=== PATIENT | female | born 1990 | race Caucasian/White ===

== ENCOUNTER 2020-04-22 04:25 | Emergency (ER) | payer OTHER, BC, SELFPAY ==
[2020-04-22 04:26] VITALS: BP 147/90; PULSE 112; RESP 18; TEMP 36.9; O2SAT 97; BMI 31.8
--- NOTE | 2020-04-22 04:27 | RAD_ITS ---
STUDY: X-RAY - LEFT HAND REASON FOR EXAM: Female, 29 years old. INJURED AT WORK -- A PIECE OF EQUIPMENT HIT LT THUMB -- C/O PAIN PROXIMAL PHALANX TECHNIQUE: 3 view(s) of the hand. COMPARISON: None. FINDINGS: Normal radiocarpal articulation. Normal distal radioulnar joint. Normal visualized carpal bones. Normal carpal articulations Normal carpometacarpal articulation of the thumb. Normal second through fifth carpometacarpal joints. Normal metacarpi. Normal metacarpophalangeal joint of the thumb. Normal interphalangeal joint of the thumb. Normal proximal and distal phalanges of the thumb. Normal metacarpophalangeal joints of the second through fifth fingers. Normal proximal and distal interphalangeal joints of the second through fifth fingers. Normal phalanges of the second through fifth fingers. The soft tissue structures are unremarkable. RAD/Hand Min 3 Views IMPRESSION: Normal x-ray examination of the hand. Electronically Signed: Stoney Piedra, at 4:52 EST Tel , Service support ,
--- NOTE | 2020-04-22 04:27 | ED.VIS.GEN ---
History of Present Illness Chief Complaint: Upper Extremity Injury Informant: Patient Onset: Today Context: Sudden Onset Timing: Continuous Current Severity: Moderate Maximum Severity: Moderate Narrative: Patient is a 29-year-old female is otherwise healthy presents to the emergency department left thumb injury. The patient was at work. She had her left thumb pinched in a press. She had immediate pain. She states is difficult to move secondary to pain. She is right-hand dominant. Tetanus is up-to-date. She has otherwise been in her normal state of health. Prior similar symptoms: No Recent Illness/Hospitalization: No Past Medical History - Allergies and Home Meds Allergies/Adverse Reactions: Allergies ranitidine [From Zantac] Allergy (Mild, Verified 04/22/20 04:30) Hives Primary Care Physician: PENNY FRANCIS [[facility] OF PH[facility]] - Prior records reviewed: Yes Past Medical History: None Surgical History: noncontributory Smoking Status: Never smoker Review of Systems General: Denies: Chills, Fever, Sweats Eyes: Denies: Visual changes - bilaterally, Diplopia ENT: Denies: Rhinorrhea, Sore throat Cardiovascular: Denies: Chest pain, Palpitations Respiratory: Denies: Dyspnea, Cough, Dyspnea on exertion Gastrointestinal: Denies: Abdominal pain, Nausea, Vomiting, Diarrhea, Melena, Hematochezia Genitourinary: Denies: Dysuria, Hematuria, Frequency Musculoskeletal: Denies: Back pain, Extremity Pain Skin: Denies: Rash, Wounds Neurological: Denies: Headache, Weakness, Numbness Physical Exam Inital Vital Signs reviewed: Yes General: Well nourished, Well developed, No Acute Distress Head: Normocephalic, Atraumatic Eyes: Perrl, EOMI ENT: Moist mucous membranes, No rhinorrhea Neck: Supple, Nontender Cardiovascular: Regular rate, Regular rhythm, No murmurs Respiratory: No distress, CTA bilaterally, Chest nontender Abdomen: Soft, Nontender, Nondistended, Normal bowel sounds Back: Nontender, Normal Inspection Extremities: No edema, Tenderness - Tenderness over the IP joint of the left thumb. Superficial abrasion. Two-point discrimination preserved. Cap refill less than 2 seconds. Skin: Normal color, No rash Neurological: Alert, Oriented x3, Cranial nerves II-XII grossly intact, Normal Strength, Normal Sensation Psychological: Normal affect, Normal Mood Diagnostic/Tx/Re-eval Clinical Impression(s) from Imaging Studies Hand X-Ray 04/22/20 04:27 IMPRESSION: Normal x-ray examination of the hand. Electronically Signed: Stoney Piedra, at 4:52 EST Tel , Service support , - Medical Decision Making Patient is neurovascular intact. Tetanus is up-to-date. Plain films were obtained of the thumb. There is no evidence of acute fracture. Her abrasion was dressed with bandage and bacitracin. She will be placed in a removable thumb spica and given follow-up with med pro. Impression 1. Left thumb contusion ED Disposition - Plan for ED Patient: Instructions: ED Crush Injury Finger No Fx Referrals: PENNY FRANCIS [GROUP OF PHYSICIANS] -
[2020-04-22 04:58] VITALS: PULSE 88; RESP 16; O2SAT 98
== END 2020-04-22 05:10 | disposition home or self-care (01) ==
LOC: ED 04:55
PROVIDERS: Emergency Provider Emergency Medicine; PCP Internal Medicine
DX: S60.012A Contusion of left thumb without damage to nail, initial encounter (principal); W31.89XA Contact with other specified machinery, initial encounter; Y93.9 Activity, unspecified; Y92.9 Unspecified place or not applicable; Y99.0 Civilian activity done for income or pay
CPT/HCPCS: 73130; 99283

== ENCOUNTER 2020-05-03 19:07 | Emergency (ER) | payer BC, OTHER, SELFPAY ==
[2020-05-03 19:08] VITALS: BP 145/95; PULSE 102; RESP 16; TEMP 36.4; O2SAT 100; BMI 29.2
[2020-05-03 20:00] VITALS: PULSE 82; RESP 16; O2SAT 97
[2020-05-03] MEDS: 0.9% Normal Saline 1,000 ML 1000 ML IV (20:01)
[2020-05-03] MEDS: Ondansetron 4 MG/2 ML Vial IV (20:01)
[2020-05-03 20:05] LABS: Absolute Lymphocyte Count 2.25 X10^3/uL (0.83-4.51); Absolute Neutrophil Count 4.3 X10^3/uL (2.0-7.7); Basophil# 0.03 X10^3/uL; Basophil% 0.4 % (0-1); Eosinophil# 0.12 X10^3/uL; Eosinophils% 1.6 % (0-5); Hematocrit 47.5 % (37-47); Hemoglobin 14.8 g/dL (12.0-15.0); Lymphocyte # 2.25 X10^3/ul (4.0); Lymphocyte % 30.9 % (19-41); Mean Corp Hgb Conc 31.2 g/dL (32-36); Mean Corpuscular Hgb 27.7 pg (27.0-32.0); Mean Corpuscular Volume 88.8 fL (81-99); Mean Platelet Vol. 8.6 fl (6.2-12.0); Monocyte# 0.62 X10^3/uL; Monocyte% 8.5 % (0-10); NRBC Flagged by Analyzer 0 % (0-5); Neutrophil # 4.25 X10^3/uL (2.7-7.7); Neutrophil % 58.5 % (47-70); Platelet Count 306 K/mm3 (150-450); RBC Distribution Width CV 12.7 % (11.6-14.6); RBC Distribution Width SD 41.8 fl (35.1-43.9); Red Blood Count 5.35 M/mm3 (4.2-5.4); White Blood Count 7.3 K/mm3 (4.4-11.0)
[2020-05-03 20:10] LABS: Internal QC Validated? YES +Cl - CLEAR BKGD; Pregnancy, Serum, hCG Quali. NEGATIVE Negative
[2020-05-03 20:16] LABS: ALB/GLOB Ratio 0.9 RATIO (0.9-2.4); AST(SGOT) 13 U/L (15-37); Alanine Aminotransfer ALT/SGPT 26 U/L (13-56); Albumin, Serum 3.7 g/dL (3.2-5.0); Alkaline Phosphatase 79 U/L (45-117); Anion Gap 5 (5-15); BUN 9 mg/dL (7-18); BUN/Creat Ratio 12.2 RATIO (10-20); Calcium,Total 9.3 mg/dL (8.5-10.1); Chloride 106 mmol/L (98-107); Creatinine, Serum 0.74 mg/dL (0.55-1.02); EST Glomerular Filtration Rate 97 mL/min (>60); Est Glom Filt Rate - Afr Amer 118 mL/min (>60); Estimated Creatinine Clearance 91.12 ml/min; Globulin 4.3 g/dL (2.2-4.2); Glucose 99 mg/dL (74-106); Lipase 91 U/L (73-393); Sodium Level 140 mmol/L (136-145)
--- NOTE | 2020-05-03 20:30 | ED.VISSUMM ---
- ER Visit Summary Date of Service: 05/03/20 Chief Complaint: Nausea, vomiting, abdominal pain History of Present Illness: The patient is a [address] Williamson. She reports that her electric transfer operator at [facility] diagnosed her with adrenal insufficiency 3 days ago and placed her on hydrocortisone. She reports that since beginning this she does not feel well. States that she has sharp upper abdominal pain that is intermittent and lasts approximately 3 minutes at a time. She denies any pain currently. She reports is 10 of 10 at worst. Is worsened by nothing. Is relieved by position. She reports has been nauseated. Last vomited 2 days ago. No blood in her emesis. However, she reports she still nauseated anytime she eats. Her last bowel was today. Normal hematochezia. No dysuria or frequency. Physical Examination: Vitals: Stable. Afebrile. General: Well-nourished and well-developed. Head: Normocephalic atraumatic. Neck: Supple, no lymphadenopathy. No JVD. Nontender. Cardiovascular: Regular rate and rhythm. No murmurs. Respiratory: No respiratory distress. Clear to auscultation bilaterally. Abdominal: Soft, nontender, nondistended, normal bowel sounds. No guarding, rebound, or peritoneal signs. Back: Nontender. Extremities: Nontender, no edema. Skin: Normal color, no rash. Neurologic: Alert and oriented ?3. Cranial nerves II through XII are intact. Normal strength and sensation. Psych: Normal affect. Test Results: CBC shows hematocrit of 47.5. Chem-7 is normal. LFTs show globulin 4.3. AST is 13. test is negative. Emergency Department Course and Treatment: Patient was treated with a dose of Zofran IV. She was given a liter of normal saline. She is resting comfortably. Treatment Plan: Had a prolonged scratch the patient that these may be side effects of the hydrocortisone. However, with adrenal insufficiency I do not think it is in her best interest to stop this without speaking to her electric transfer operator. Her symptoms will be managed with Zofran and Prilosec. She is instructed to follow-up with her electric transfer operator as possible. Follow-up Dr. Williamson in 3 to 5 days if not improving. Return to the emergency department for any worsening symptoms. Disposition: To home in improved and stable condition. Impression: 1. Vomiting. 2. Abdominal pain, uncertain cause. This note was generated with TuneUp dictation software. It may contain incorrect words, spelling, and punctuation that were not noted in review of the chart prior to signing ED Disposition - Plan for ED Patient: Disposition: Home or Assisted Living Instructions: ED Abdominal Pain Unkn Cause Fem Prescriptions: Omeprazole [Prilosec] 20 mg PO DAILY #30 cap Prescription Printed Ondansetron [Zofran Odt] 4 mg PO Q8H PRN PRN #10 tab PRN Reason: Nausea Prescription Printed Referrals: Araceli Nguyen MD [Primary Care Provider] - 3-5 Days if not improving
[2020-05-03 20:42] VITALS: BP 131/75; PULSE 89; RESP 18; O2SAT 99
== END 2020-05-03 20:43 | disposition home or self-care (01) ==
LOC: ED 19:43
PROVIDERS: Emergency Provider Emergency Medicine; PCP Internal Medicine
DX: R11.2 Nausea with vomiting, unspecified (principal); R10.9 Unspecified abdominal pain; E27.40 Unspecified adrenocortical insufficiency
CPT/HCPCS: 80053; 83690; 84703; 85025; 96361; 96374; 99284; J7030; A4216; J2405

== ENCOUNTER → 2020-05-07 11:55 | Outpatient (CLI) | payer BC, OTHER, SELFPAY ==
--- NOTE | 2020-05-07 11:58 | CT_ITS ---
STUDY: CT ABDOMEN AND PELVIS WITH AND WITHOUT CONTRAST REASON FOR EXAM: Female, 29 years old. Adrenal INSUFFICIENCY. RADIATION DOSAGE (If Supplied By Facility): CTDIvol = ( 23.90 ) mGy, DLP = ( 2356.78 ) mGycm TECHNIQUE: Transaxial images were obtained from the dome of the diaphragm to the symphysis pubis without oral contrast. IV 100ML ISOVUE 300 was administered. Sagittal and coronal images were reconstructed. Individualized dose optimization techniques were used for this CT. COMPARISON: None. FINDINGS: The visualized lung bases are unremarkable. The visualized portions of the heart are within normal limits. There is decreased attenuation of the liver consistent with steatosis. Normal gallbladder and extrahepatic biliary system. Normal spleen. Normal pancreas. Normal bilateral adrenal glands. Focal calcification in the papilla of the midpole of the right kidney suggestive of possible medullary sponge kidney. 1 cm cyst in the mid medial portion of the right kidney as well as in the upper pole of the right kidney. Normal left kidney. Normal visualized stomach. Normal small intestine. Normal colon. The appendix is visualized and appears normal. Normal abdominal aorta. Normal inferior vena cava. There is borderline retroperitoneal lymphadenopathy with enlarged nodes no greater than 10mm in the short axis diameter. Normal urinary bladder. Normal abdominal wall. Normal osseous structures. CT/CT Abd/Pelvis W/WO Contrast IMPRESSION: Fatty infiltration of the liver. The adrenal glands are unremarkable. 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 There are 2 cysts in the right kidney Electronically Signed: Jagdish Castro, at 13:32 EST , Service support ,
== END ==
PROVIDERS: PCP Internal Medicine; Referring Provider Internal Medicine; Visit Provider Internal Medicine
DX: E27.49 Other adrenocortical insufficiency (principal); R10.9 Unspecified abdominal pain
CPT/HCPCS: 74178; Q9967; A4216

== ENCOUNTER → 2020-06-28 11:59 | Outpatient (CLI) | payer OTHER, SELFPAY ==
[2020-06-28 11:07] VITALS: BMI 29.5
[2020-06-28 15:52] LABS: Anion Gap 5 (5-15); BUN 8 mg/dL (7-18); BUN/Creat Ratio 11.7 RATIO (10-20); Calcium,Total 9.4 mg/dL (8.5-10.1); Chloride 103 mmol/L (98-107); Creatinine, Serum 0.68 mg/dL (0.55-1.02); EST Glomerular Filtration Rate 107 mL/min (>60); Est Glom Filt Rate - Afr Amer 129 mL/min (>60); Glucose 97 mg/dL (74-106); Sodium Level 137 mmol/L (136-145)
== END ==
PROVIDERS: PCP Internal Medicine; Referring Provider Internal Medicine; Visit Provider Internal Medicine
DX: E27.40 Unspecified adrenocortical insufficiency (principal)
CPT/HCPCS: 36415; 80048

== ENCOUNTER 2021-08-15 15:05 | Outpatient (CLI) | payer BC, OTHER, SELFPAY ==
[2021-08-15 16:39] LABS: Absolute Lymphocyte Count 2.36 X10^3/uL (0.83-4.51); Absolute Neutrophil Count 5.1 X10^3/uL (2.0-7.7); Basophil# 0.04 X10^3/uL; Basophil% 0.5 % (0-1); Eosinophils% 1.2 % (0-5); Hematocrit 42.8 % (37-47); Hemoglobin 13.9 g/dL (12.0-15.0); Lymphocyte # 2.36 X10^3/ul (0.83-4.51); Lymphocyte % 28.8 % (19-41); Mean Corp Hgb Conc 32.5 g/dL (32-36); Mean Corpuscular Hgb 27.6 pg (27.0-32.0); Mean Corpuscular Volume 85.1 fL (81-99); Mean Platelet Vol. 8.9 fl (6.2-12.0); Monocyte# 0.55 X10^3/uL; Monocyte% 6.7 % (0-10); NRBC Flagged by Analyzer 0 % (0-5); Neutrophil # 5.12 X10^3/uL (2.7-7.7); Neutrophil % 62.6 % (47-70); Platelet Count 327 K/mm3 (150-450); RBC Distribution Width CV 12.8 % (11.6-14.6); RBC Distribution Width SD 39.7 fl (35.1-43.9); Red Blood Count 5.03 M/mm3 (4.2-5.4); White Blood Count 8.2 K/mm3 (4.4-11.0)
[2021-08-15 16:52] LABS: Vitamin D,25 Hydroxy 19.2 ng/mL
[2021-08-15 16:54] LABS: Hemoglobin A1c 5.2 % (3.8-5.6)
[2021-08-15 17:27] LABS: ALB/GLOB Ratio 0.8 RATIO (0.9-2.4); AST(SGOT) 16 U/L (15-37); Alanine Aminotransfer ALT/SGPT 27 U/L (13-56); Albumin, Serum 3.5 g/dL (3.2-5.0); Alkaline Phosphatase 78 U/L (45-117); Anion Gap 7 (5-15); BUN 6 mg/dL (7-18); BUN/Creat Ratio 9.2 RATIO (10-20); Calcium,Total 8.8 mg/dL (8.5-10.1); Chloride 106 mmol/L (98-107); Creatinine, Serum 0.65 mg/dL (0.55-1.02); EST Glomerular Filtration Rate 111 mL/min (>60); Est Glom Filt Rate - Afr Amer 134 mL/min (>60); Globulin 4.4 g/dL (2.2-4.2); Glucose 102 mg/dL (74-106); Potassium 3.9 mmol/L (3.5-5.1); Protein, Total 7.9 g/dL (6.4-8.2); Sodium Level 139 mmol/L (136-145); Thyroid Stim Hormone (TSH) 1.44 uIU/mL (0.358-3.74)
== END 2021-08-15 23:59 | disposition home or self-care (01) ==
LOC: BIMLAB 15:06
PROVIDERS: PCP Internal Medicine; Visit Provider Internal Medicine
DX: R19.7 Diarrhea, unspecified (principal)
CPT/HCPCS: 36415; 80053; 82306; 83036; 84443; 85025

== ENCOUNTER 2021-08-17 13:25 | Outpatient (CLI) | payer BC, OTHER, SELFPAY | END 2021-08-17 23:59 | disposition home or self-care (01) | LOC: LABSPEC 13:26 | PROVIDERS: PCP Internal Medicine; Referring Provider Internal Medicine; Visit Provider Internal Medicine | DX: R19.7 Diarrhea, unspecified (principal) | CPT/HCPCS: 87506 ==

== ENCOUNTER 2021-08-22 07:49 | Outpatient (CLI) | payer BC, OTHER, SELFPAY ==
--- NOTE | 2021-08-22 07:51 | US_ITS ---
STUDY: ABDOMINAL ULTRASOUND - RIGHT UPPER QUADRANT REASON FOR VISIT: Female, 30 years old diarrhea, ruq tenderness TECHNIQUE: Ultrasound evaluation of the right upper quadrant was performed with real-time and static vargas-scale imaging. TECHNICAL QUALITY: Adequate. COMPARISON: None. FINDINGS: Liver: The liver measures 17.2 cm. There is increased echogenicity consistent with fatty infiltration. The bile ducts are within normal limits. There is hepatic color flow. The direction of portal flow is hepatopetal. There is no demonstrated mass lesion. Gallbladder: Normal distended gallbladder. The gallbladder wall measures 2.0 mm. There is a negative sonographic Quach''s sign. There is no pericholecystic fluid. There are no gallstones. Common Bile Duct (C.B.D.): The common bile duct measures 2 mm. Pancreas: Normal size of the head, body of the pancreas. The tail portion is obscured due to overlying bowel gas. There is normal echogenicity of the pancreas. There is no demonstrated pancreatic mass or cyst. Right Kidney: Normal size of the right kidney. The right kidney measures 11.2 cm x 5.9 cm x 5.3 cm. Normal renal cortex. The right cortex measures 1.3 cm. There is no demonstrated renal mass or cyst. There is no right hydronephrosis. US/Abdomen Limited IMPRESSION: Fatty infiltration of the liver. Borderline hepatomegaly. Electronically Signed: Jagdsih Castro MD at 8:28 EST ,
== END 2021-08-22 23:59 | disposition home or self-care (01) ==
LOC: US 07:51
PROVIDERS: PCP Internal Medicine; Referring Provider Internal Medicine; Visit Provider Internal Medicine
DX: R19.7 Diarrhea, unspecified (principal); R10.811 Right upper quadrant abdominal tenderness
CPT/HCPCS: 76705

== ENCOUNTER 2022-01-09 11:35 | Emergency (ER) | payer OTHER, BC, SELFPAY ==
[2022-01-09 11:35] VITALS: BP 153/105; PULSE 113; RESP 16; TEMP 36.4; O2SAT 98; BMI 29.2
--- NOTE | 2022-01-09 12:05 | EDS_ITS ---
HPI History of Present Illness Chief Complaint: Head Injury Informant: patient Narrative Narrative: Patient is a 31-year-old female with history of PCOS, adrenal insufficiency and pituitary adenoma presenting after head injury at work. 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 No loss of consciousness reported. States she does have headache, dizziness, feels nauseous but no vomiting. Does not have any history of concussions. This injury happened around 6:45 AM. She did take ibuprofen prior to arrival. Work was concerned recommend she get evaluated further. No other complaints at this time. Patient is on any blood thinners. Denies any ringing or ears or vision changes. [facility] Medical History Pituitary abnormality Rosacea Home Medications ibuprofen 800 mg tablet 800 mg PO TID PRN PRN Pain #60 tabs 10/15/14 [Rx Last Taken Unknown] levonorgestrel 20 mcg/24 hours (7 yrs) 52 mg intrauterine device (Mirena) 1 device intrauterine ONCE 11/23/20 [History Last Taken Unknown] metformin 500 mg tablet,extended release 24 hr 500 mg PO BID 11/23/20 [History Last Taken Unknown] drospiren-e.estrad-l.mefol 3 mg-0.02 mg-0.451 mg(24)/0.451 mg(4)tablet (Beyaz (28)) 1 tab PO DAILY 08/15/21 [History Last Taken Unknown] lactobacillus combination no.9 4 billion cell capsule (Adult 50 Plus Probiotic) PO 09/01/21 [History Last Taken Unknown] ondansetron 4 mg disintegrating tablet 4 mg PO Q6H PRN nausea and vomiting #10 tabs 01/09/22 [Rx Last Taken Unknown] Allergy/AdvReac Type Severity Reaction Status Date / Time ranitidine [From Zantac] Allergy Mild Hives Verified 09/01/21 09:54 Family History Grandmother Diabetes Heart disease CVA (cerebral vascular accident) Mother Diabetes Thyroid disorder Grandfather Heart disease Father Hypertension Social History Smoking Status: Unknown if ever smoked Tobacco: How many years used: 5 alcohol intake: never substance use type: does not use ROS ROS ED Constitutional Constitutional ED: Denies chills or fever(s) Eyes Eyes: Denies blurry vision or change in vision ENT ENT ED: Denies rhinorrhea or sore throat Cardiovascular Cardiovascular: Denies chest pain Respiratory/Chest Respiratory/Chest: Denies cough Gastrointestinal Gastrointestinal: Reports nausea; Denies abdominal pain or vomiting Genitourinary Genitourinary ED: Denies dysuria Musculoskeletal Musculoskeletal: Denies arthralgias, back pain or neck pain Integumentary Reports Abrasions Neurologic Neurologic: Reports headache(s); Denies paresthesias or weakness Psychiatric Psychiatric: Denies anxiety Hematologic/Lymphatic Hematologic/Lymphatic: Denies easy bleeding or easy bruising EXAM Physical Exam Const Vital Signs: 01/09/22 11:35 Temperature 97.6 F L Temperature Source Temporal Pulse Rate 113 H Respiratory Rate 16 Blood Pressure 153/105 H Blood Pressure Mean 121 Pulse Ox 98 Oxygen Delivery Method Room Air Positive well nourished and well developed General Appearance ED: well developed and NAD HEENT Denies TM's clear HEENT Narrative: Abrasion to right forehead just at the hairline. No associated hematoma. No hemotympanum. No septal hematoma. No other signs of trauma. tenderness Nose: Negative for septum abnormal Tympanic Membrane ED: Negative for TM's clear Eyes PERRL and EOMs intact bilaterally Neck full ROM Chest Wall inspection of chest normal and palpation of chest normal Resp normal respiratory effort and clear to auscultation bilaterally Cardio regular rhythm and no murmurs Rate: regular rate GI normal to inspection, nondistended, normoactive bowel sounds and non-tender Extremity normal to inspection and full ROM Neuro oriented x3, CN's II-XII intact bilaterally, moves all extremities, no focal motor deficits, no sensory deficits noted and gait normal Psych mental status grossly normal and thought process normal Skin Skin Narrative: 4 cm abrasion -linear, no bleeding associated with it. This is on the right forehead just at the hairline. MDM MDM MDM Narrative Medical decision making narrative: Patient is evaluated for closed head injury. She appears nontoxic no acute distress. Has a normal neurologic exam. Symptoms are likely consistent with concussion. Patient has low impact and I do not suspect an acute scalp fracture or intracranial hemorrhage. I do not think head imaging is indicated at this time. She not have any risk factors including anticoagulation therapy. She is agreeable with this plan of care. She is given Zofran and Tylenol in the ER for her symptoms. She will follow-up with employee health. She is counseled return precautions. She is given some work restrictions and counseled on the typical course of a closed head injury/concussion. Discharge Plan Triage Chief Complaint: Head Injury ED Provider: Nia Mccoy Dx/Rx/DC Orders Clinical Impression: Closed head injury, Abrasion of scalp, Concussion Instructions: ED Concussion Prescriptions: New ondansetron 4 mg tablet,disintegrating 4 mg PO Q6H PRN (Reason: nausea and vomiting) Qty: 10 0RF No Action metformin 500 mg tablet extended release 24 hr 500 mg PO BID Mirena 20 mcg/24 hours (6 yrs) 52 mg intrauterine device 1 device intrauterine ONCE Rx Instructions: as a single dose drospirenone-e.estradiol-lm.FA [Beyaz] 3-0.02-0.451 mg (24) (4) tablet 1 tab PO DAILY Adult 50 Plus Probiotic 4 billion cell capsule PO ibuprofen 800 MG tablet 800 mg PO TID PRN PRN (Reason: Pain) Qty: 60 1RF Primary Care Provider: Araceli Nguyen Referrals: Araceli Nguyen MD [Primary Care Provider] - Activity Restrictions/Additional Instructions: Alternate ibuprofen and Tylenol as needed for headache. Drink lots of fluids and rest today. Disposition Disposition: Home, Self Care
[2022-01-09] MEDS: Ondansetron ODT 4 MG Tablet PO (12:21)
[2022-01-09 12:45] VITALS: BP 140/80; PULSE 100; RESP 18; O2SAT 97
== END 2022-01-09 12:46 | disposition home or self-care (01) ==
PROVIDERS: Emergency Provider Emergency Medicine; PCP Internal Medicine; Visit Provider Emergency Medicine
DX: S06.0X0A Concussion without loss of consciousness, initial encounter (principal); S00.01XA Abrasion of scalp, initial encounter; W22.09XA Striking against other stationary object, initial encounter; Y93.89 Activity, other specified; Y99.0 Civilian activity done for income or pay; Y92.63 Factory as the place of occurrence of the external cause
CPT/HCPCS: 99283

== ENCOUNTER 2023-01-15 13:23 | Emergency (ER) | payer BC, SELFPAY ==
[2023-01-15 13:25] VITALS: BP 157/110; PULSE 107; RESP 18; TEMP 37.1; O2SAT 100; BMI 29.7
[2023-01-15 15:16] VITALS: BMI 29.7
--- NOTE | 2023-01-15 15:31 | CT_ITS ---
EXAM: CT HEAD WITHOUT AND WITH INTRAVENOUS CONTRAST CLINICAL INDICATION: vertigo, new headache, hx intracranial mass TECHNIQUE: Multiple axial images were obtained of the head without and with intravenous contrast. This CT exam was performed using one or more of the following dose reduction techniques: automated exposure control, adjustment of the mA and/or kV according to patient size, and/or use of iterative reconstruction technique. CONTRAST: 50ML ISOVUE 370 COMPARISON: No relevant prior studies available. FINDINGS: BRAIN AND EXTRA-AXIAL SPACES: Unremarkable. No intra- or extra-axial hemorrhage. No evidence of acute infarct. No intracranial mass or mass effect. There is preservation of the vargas/white matter interface. Posterior fossa structures are unremarkable. Ventricles are appropriate for age. No hydrocephalus. Basal cisterns are patent. BONES/JOINTS: Unremarkable. No discrete lytic or blastic abnormalities. SINUSES: Unremarkable as visualized. Clear. MASTOID AIR CELLS: Unremarkable. Clear. ORBITS: Visualized globes, extraocular muscles, optic nerves and retrobulbar fat appear unremarkable. CT/Brain/Head W/WO Contrast IMPRESSION: Negative head/brain CT without and with intravenous contrast. Electronically Signed: Suleman Lea MD at 17:25 EDT ,
--- NOTE | 2023-01-15 15:32 | EDS_ITS ---
HPI History of Present Illness Chief Complaint: Neuro S/Sx Informant: patient Narrative Narrative: This is day #6 of vertigo that started suddenly, followed by headaches that feel like they are behind her ethmoid sinus, retro-orbital, not causing nausea, vomiting, vision changes, may be mild photophobia. Headaches are new. States she had migraines when she was a child. She states just over 1 week ago, she had a painful spot of lesions on her left posterior trapezius area and a couple days later on her left cheek/face. She was seen by a doctor and had a swab of the lesions that was positive for varicella-zoster virus and negative for at bedtime want any chest to, as the patient showed me from her chart/portal from [facility]. She had chickenpox twice since she was a child. She was put on Valtrex on day #3 of this, she just took her last 1 today, she states that the 1 on her cheek is gone and the one on her left upper back is significantly better and not really hurting anymore. She denies rashes elsewhere. She states her face seems swollen compared to normal. She denies any nasal congestion, URIs or other illness in the past month, changes in hearing, tinnitus, earache, seasonal allergies, nasal discharge or bleeding. No fevers or chills. No confusion. No neck pain or stiffness. States she has a history of a pituitary adenoma that has been followed with MRI and actually drinking not necessarily growing, she states initially someone thought it was giving her adrenal insufficiency and PCOS. She saw another doctor who said she does not have adrenal insufficiency, and now is on no medications for that. She has taken no steroids recently. She denies any peripheral neurologic symptoms. She denies any problems walking. With regards to the vertigo, she states that it is worse with certain position changes, it does dissipate when she rests and sits still. It does not seem to be associated with the headaches, which have been constant. She states she has noticed that her blood pressure has been elevated, today 2 separate times it was around 160 systolic. She states her blood pressure is not high usually. [facility] Medical History (Updated 01/15/23 @ 17:[address] Juancarlos Yin MD) Chronic headaches PCOS (polycystic ovarian syndrome) Pituitary abnormality Pituitary tumor Rosacea Home Medications ibuprofen 800 mg tablet 800 mg PO TID PRN PRN Pain #60 tabs 10/15/14 [Rx Last Taken Unknown] levonorgestrel 21 mcg/24 hours (8 yrs) 52 mg intrauterine device (Mirena) 1 device intrauterine ONCE 11/23/20 [History Last Taken Unknown] metformin 500 mg tablet,extended release 24 hr 500 mg PO BID 11/23/20 [History Last Taken Unknown] drospiren-e.estrad-l.mefol 3 mg-0.02 mg-0.451 mg(24)/0.451 mg(4)tablet (Beyaz (28)) 1 tab PO DAILY 08/15/21 [History Last Taken Unknown] lactobacillus combination no.9 4 billion cell capsule (Adult 50 Plus Probiotic) PO 09/01/21 [History Last Taken Unknown] ondansetron 4 mg disintegrating tablet 4 mg PO Q6H PRN nausea and vomiting #10 tabs 01/09/22 [Rx Last Taken Unknown] Allergy/AdvReac Type Severity Reaction Status Date / Time ranitidine [From Zantac] Allergy Mild Hives Verified 09/01/21 09:54 Family History Grandmother Diabetes Heart disease CVA (cerebral vascular accident) Mother Diabetes Thyroid disorder Grandfather Heart disease Father Hypertension Social History Smoking Status: Never smoker Tobacco: How many years used: 5 alcohol intake: never substance use type: does not use ROS ROS ED Constitutional Constitutional ED: Denies chills or fever(s) Eyes Eyes: Denies change in vision or diplopia ENT ENT ED: Reports as per HPI, headache(s) and vertigo; Denies ear discharge, ear pain, nasal congestion, neck pain, otalgia, rhinorrhea, sore throat or tinnitus Cardiovascular Cardiovascular: Denies chest pain or palpitations Respiratory/Chest Respiratory/Chest: Denies cough or dyspnea Gastrointestinal Gastrointestinal: Denies abdominal pain, diarrhea, nausea or vomiting Genitourinary Genitourinary ED: Denies dysuria or hematuria Musculoskeletal Musculoskeletal: Denies back pain or neck pain Integumentary Reports rash; Denies abscess Neurologic Neurologic: Reports as per HPI, dizziness and headache(s); Denies confusion, memory loss, paresthesias, seizures, syncope or weakness Psychiatric Psychiatric: Denies anxiety or suicidal thoughts EXAM Physical Exam Const Vital Signs: 01/15/23 13:25 Temperature 98.7 F Temperature Source Temporal Pulse Rate 107 H Respiratory Rate 18 Blood Pressure 157/110 H Blood Pressure Mean 125 Pulse Ox 100 Oxygen Delivery Method Room Air Positive well nourished and well developed General Appearance ED: well developed and NAD HEENT Reports TM's clear and moist mucous membranes HEENT Narrative: Posterior pharynx clear normal. Nose normal. No objective facial edema or tenderness or rash. No parotid tenderness, mastoid tenderness or swelling/erythema. EACs normal bilaterally. normocephalic and atraumatic Tympanic Membrane ED: Yes TM's clear Eyes PERRL and EOMs intact bilaterally Neck full ROM, no lymphadenopathy and supple Neck Narrative: Negative Kernig and presents gait. Full range of motion without any difficulty or discomfort. Resp normal respiratory effort and clear to auscultation bilaterally Cardio regular rate, regular rhythm and no murmurs GI non-tender and non-distended Auscultation: normoactive bowel sounds Palpation: soft Back/Spine no CVA tenderness General Back: other FROM Extremity normal to inspection General Extremety ED: Negative for edema, pulses abnormal or tenderness General Extremity: Negative for edema or pulses abnormal Neuro oriented x3, CN's II-XII intact bilaterally and no sensory deficits noted Neuro Narrative: Normal dlscyr-sd-exku and kyho-na-mxqr bilaterally. Normal Romberg. Normal exam. Alert and oriented x3 and appropriate. Normal speech. Sensorium / Orientation: awake and alert Motor Exam: strength 5/5 throughout Psych mental status grossly normal Skin no wounds Skin Narrative: Only rash/lesion is a small cluster of vesicles on the left posterior upper back, trapezius area. Nontender. MDM MDM MDM Narrative Medical decision making narrative: This patient was sent from urgent care and told something about potentially needing to have a spinal tap and CSF to see if she has disseminated zoster. I certainly do not think this patient has any symptoms or findings of meningitis or encephalitis. I do not think she needs a spinal tap which I discussed with her. Perhaps her blood pressure is elevated because of being told this. We will watch this and I think it be reasonable to get a CT with and without contrast given she has a history of pituitary adenoma, although it does not sound malignant and it is not in the correct area of the brain to give her the symptoms. Her symptoms sound peripheral in nature, not central. She was amenable to getting a CT to rule out masses and infarcts. I reviewed the images and the report which is negative for anything acute, and I agree with the report. Patient was offered meclizine she declines it. At this time I do not think she has any medical emergency and is safe to follow-up as an outpatient. If this is peripheral in nature, which does act, most of the time it should resolve on its own with time. If not I would start with otolaryngology and/or her doctor. She is comfortable with that plan. We discussed reasons to return to the ER including neck stiffness and confusion, signs of encephalopathy which she does not currently have. Radiography Diagnostic Testing: Clinical Impression(s) from Imaging Studies Brain CT 01/15/23 15:31 IMPRESSION: Negative head/brain CT without and with intravenous contrast. Electronically Signed: Suleman Lea MD at 17:25 EDT , Discharge Plan Triage Chief Complaint: Neuro S/Sx ED Provider: Juancarlos Yin Dx/Rx/DC Orders Clinical Impression: Peripheral vertigo, Headache Instructions: ED Vertigo, Unspecified Prescriptions: No Action metformin 500 mg tablet extended release 24 hr 500 mg PO BID Mirena 20 mcg/24 hours (6 yrs) 52 mg intrauterine device 1 device intrauterine ONCE Rx Instructions: as a single dose drospirenone-e.estradiol-lm.FA [Beyaz] 3-0.02-0.451 mg (24) (4) tablet 1 tab PO DAILY Adult 50 Plus Probiotic 4 billion cell capsule PO ibuprofen 800 MG tablet 800 mg PO TID PRN PRN (Reason: Pain) Qty: 60 1RF ondansetron 4 mg tablet,disintegrating 4 mg PO Q6H PRN (Reason: nausea and vomiting) Qty: 10 0RF Primary Care Provider: Araceli Nguyen Referrals: Homar Lezama MD [Med Staff - Active Staff] - 1 Week if not improving Araceli Nguyen MD [Primary Care Provider] - Activity Restrictions/Additional Instructions: If you want to take a medication to lessen the disequilibrium, you can take [id number] meclizine. It is nondrowsy.
[2023-01-15 18:13] VITALS: RESP 16
== END 2023-01-15 18:14 | disposition home or self-care (01) ==
PROVIDERS: Emergency Provider Emergency Medicine; PCP Internal Medicine; Visit Provider Emergency Medicine
DX: H81.399 Other peripheral vertigo, unspecified ear (principal); R51.9 Headache, unspecified
CPT/HCPCS: 70470; 99283; Q9967; A4216

== ENCOUNTER → 2024-02-06 | Outpatient (CLI) | payer BC, SELFPAY ==
[2024-02-06 16:06] LABS: Absolute Lymphocyte Count 2.39 X10^3/uL (0.83-4.51); Absolute Neutrophil Count 4.2 X10^3/uL (2.0-7.7); Basophil# 0.03 X10^3/uL; Basophil% 0.4 % (0-1); Eosinophil# 0.17 X10^3/uL; Eosinophils% 2.3 % (0-5); Hematocrit 40.9 % (37-47); Hemoglobin 13.5 g/dL (12.0-15.0); Lymphocyte # 2.39 X10^3/ul (0.83-4.51); Lymphocyte % 32.7 % (19-41); Mean Corpuscular Hgb 28.4 pg (27.0-32.0); Mean Corpuscular Volume 85.9 fL (81-99); Mean Platelet Vol. 8.7 fl (6.2-12.0); Monocyte# 0.54 X10^3/uL; Monocyte% 7.4 % (0-10); NRBC Flagged by Analyzer 0 % (0-5); Neutrophil # 4.16 X10^3/uL (2.7-7.7); Neutrophil % 57.1 % (47-70); Platelet Count 267 K/mm3 (150-450); RBC Distribution Width CV 12.5 % (11.6-14.6); RBC Distribution Width SD 39.3 fl (35.1-43.9); Red Blood Count 4.76 M/mm3 (4.2-5.4); White Blood Count 7.3 K/mm3 (4.4-11.0)
[2024-02-06 16:30] LABS: Vitamin D,25 Hydroxy 45.4 ng/mL
[2024-02-06 16:33] LABS: AST(SGOT) 24 U/L (15-37); Alanine Aminotransfer ALT/SGPT 23 U/L (13-56); Albumin, Serum 3.8 g/dL (3.2-5.0); Alkaline Phosphatase 80 U/L (45-117); Anion Gap 4 (5-15); BUN 7 mg/dL (7-18); BUN/Creat Ratio 11.7 RATIO (10-20); Calcium,Total 8.9 mg/dL (8.5-10.1); Chloride 104 mmol/L (98-107); Cholesterol 200 mg/dL (200); EST Glomerular Filtration Rate 121 mL/min (>60); Est Glom Filt Rate - Afr Amer 147 mL/min (>60); Globulin 3.9 g/dL (2.2-4.2); Glucose 86 mg/dL (74-106); High Density Lipoprotein 47 mg/dL; Potassium 3.7 mmol/L (3.5-5.1); Protein, Total 7.7 g/dL (6.4-8.2); Sodium Level 136 mmol/L (136-145); T4 Free Direct 0.82 ng/dL (0.76-1.46); Triglycerides 67 mg/dL; Very Low Density Lipoprotein 13 mg/dL (5-40)
== END | disposition home or self-care (01) ==
PROVIDERS: PCP Internal Medicine; Referring Provider Internal Medicine; Visit Provider Internal Medicine
DX: E28.2 Polycystic ovarian syndrome (principal); E27.40 Unspecified adrenocortical insufficiency; Z13.220 Encounter for screening for lipoid disorders; E55.9 Vitamin D deficiency, unspecified
CPT/HCPCS: 36415; 80053; 80061; 82306; 84439; 84443; 84481; 85025

== ENCOUNTER → 2024-08-28 | Outpatient (CLI) | payer BC, SELFPAY ==
[2024-08-28 07:25] LABS: Absolute Lymphocyte Count 1.89 X10^3/uL (0.83-4.51); Absolute Neutrophil Count 2.4 X10^3/uL (2.0-7.7); Basophil# 0.03 X10^3/uL; Basophil% 0.6 % (0-1); Hematocrit 44.6 % (37-47); Hemoglobin 14.6 g/dL (12.0-15.0); Lymphocyte # 1.89 X10^3/ul (0.83-4.51); Lymphocyte % 38.3 % (19-41); Mean Corp Hgb Conc 32.7 g/dL (32-36); Mean Corpuscular Hgb 28.6 pg (27.0-32.0); Mean Corpuscular Volume 87.5 fL (81-99); Monocyte# 0.49 X10^3/uL; Monocyte% 9.9 % (0-10); NRBC Flagged by Analyzer 0 % (0-5); Neutrophil # 2.42 X10^3/uL (2.7-7.7); Platelet Count 293 K/mm3 (150-450); RBC Distribution Width SD 41.9 fl (35.1-43.9); White Blood Count 4.9 K/mm3 (4.4-11.0)
[2024-08-28 09:19] LABS: ALB/GLOB Ratio 1.4 RATIO (0.9-2.4); AST(SGOT) 23 U/L (<=31); Alanine Aminotransfer ALT/SGPT 18 U/L (<=34); Albumin, Serum 4.3 g/dL (3.5-5.0); Alkaline Phosphatase 78 U/L (35-104); Anion Gap 11 (5-15); BUN 11 mg/dL (4-19); BUN/Creat Ratio 16.5 RATIO (10-20); Calcium,Total 9.2 mg/dL (7.6-11.0); Carbon Dioxide 23.8 mmol/L (21.0-32.0); Chloride 105 mmol/L (98-108); Cholesterol 200 mg/dL (<=200); Creatinine, Serum 0.65 mg/dL (0.70-1.20); EST Glomerular Filtration Rate 118 (>60); Globulin 3.2 g/dL (2.2-4.2); Glucose 98 mg/dL (70-99); High Density Lipoprotein 39 mg/dL; Low Density Lipoprotein Calc. 137 mg/dL; Magnesium 2.2 mg/dL (1.5-2.2); Potassium 4.2 mmol/L (3.3-5.1); Protein, Total 7.5 g/dL (5.9-8.4); Sodium Level 140 mmol/L (133-145); Total Bilirubin 0.48 mg/dL (0.00-1.30); Triglycerides 118 mg/dL; Very Low Density Lipoprotein 24 mg/dL (5-40); cholesterol:hdl ratio screen 5.13
[2024-08-28 09:45] LABS: Free T3 3.8 pg/mL (2.18-3.98); Vitamin B12 427 pg/mL (180-914); Vitamin D,25 Hydroxy 41.7 ng/mL (30-100)
== END | disposition home or self-care (01) ==
LOC: LAB 06:03
PROVIDERS: PCP Internal Medicine; Referring Provider Internal Medicine; Visit Provider Internal Medicine
DX: Z00.00 Encounter for general adult medical examination without abnormal findings (principal); E28.2 Polycystic ovarian syndrome; E55.9 Vitamin D deficiency, unspecified; Z13.220 Encounter for screening for lipoid disorders
CPT/HCPCS: 36415; 80053; 80061; 82306; 82607; 83735; 84439; 84443; 84481; 85025

== ENCOUNTER → 2024-09-16 | Outpatient (CLI) | payer BC, SELFPAY | END | disposition home or self-care (01) | LOC: SL 17:03 | PROVIDERS: PCP Internal Medicine; Referring Provider Internal Medicine; Visit Provider Internal Medicine | DX: G47.33 Obstructive sleep apnea (adult) (pediatric) (principal) | CPT/HCPCS: 95806 ==